=== PATIENT | female | born 1960 | race African-American/Black ===

== ENCOUNTER 2019-08-27 23:21 | Inpatient (IN) ==
[2019-08-28] MEDS ORDERED: INSULIN REGULAR DRIP 100 ML IV PRN (01:25)
[2019-08-28] MEDS ORDERED: GLUCAGON 1 MG VIAL IM PRN ×2 (01:26→08:58)
[2019-08-28] MEDS ORDERED: DEXTROSE 10% 250 ML BAG IV PRN (01:38)
[2019-08-28] MEDS ORDERED: DEXTROSE 50% 25 GM/50 ML VIAL IV PRN ×2 (01:44→08:58)
[2019-08-28 02:08] LABS: Basophils # 0.1 10*3/uL (0.0-0.2); Basophils % 0.3 % (0.0-0.8); Eosinophils # 0.1 10*3/uL (0.0-0.87); Eosinophils % 0.6 % (0.00-10.9); Hematocrit 43.8 VOL% (35.7-47.0); Hemoglobin 14.5 GM/DL (12.0-16.0); Immature Granulocytes % 0.7 %; Immature Granulocytes Absolute 0.11 #; Lymphocytes # 1.7 10*3/uL (1.4-4.0); Mean Corpuscular HGB Conc 33.1 GM/DL (32-36); Mean Corpuscular Volume 86.4 FL (87-102); Mean Platelet Volume 10.8 FL (9.6-12.0); Monocytes % 5.6 % (1.7-12.7); Neutrophils % 82.8 % (38.7-73.9); Platelet Count 344 T/CUMM (130-400); Red Blood Count 5.07 MC/CUMM (3.8-5.5); Red Cell Distribution Width 12.9 % (9.3-17.3); White Blood Count 16.7 T/CUMM (4-12)
[2019-08-28 02:38] LABS: Calcium 10.2 MG/DL (8.5-10.1); Osmolality,Calculated 279.4 MOS/KG (273-304)
[2019-08-28 03:15] LABS: ABG HCO3 27.1 MMOL/L (20-26); ABG Oxygen Saturation 99.2 % (95-100); ABG PCO2 48.8 MM HG (35-48); ABG PH 7.384 (7.35-7.45); Allen Test Positive
[2019-08-28] MEDS ORDERED: ONDANSETRON 4 MG/2 ML VIAL IV PRN (05:05)
[2019-08-28 05:45] LABS: Calcium 9.9 MG/DL (8.5-10.1); Osmolality,Calculated 277.9 MOS/KG (273-304)
[2019-08-28] MEDS ORDERED: hydrALAZINE 20 MG/1 ML VIAL IV PRN (07:09)
[2019-08-28] MEDS: carvediloL 12.5 MG TABLET PO SCH ×2 (08:33→21:35)
[2019-08-28] MEDS ORDERED: FUROSEMIDE 40 MG/4 ML VIAL IV SCH (09:00)
[2019-08-28] MEDS: FUROSEMIDE 40 MG/4 ML VIAL IV SCH ×2 (09:23→21:25)
[2019-08-28] MEDS ORDERED: INSULIN LISPRO 100 UNIT/ML SUBCUT SCH (10:00)
[2019-08-28] MEDS ORDERED: ALBUTEROL/IPRATROPIUM 3 ML NEB RESP TX ONE (11:04)
[2019-08-28] MEDS: NYSTATIN CREAM 15 GM TUBE TOP SCH ×2 (11:59→22:07)
[2019-08-28] MEDS: INSULIN LISPRO 100 UNIT/ML SUBCUT SCH ×3 (11:59→21:28)
[2019-08-28 12:59] LABS: Troponin I 0.065 NG/ML (0.00-0.045)
[2019-08-28] MEDS: ACETAMINOPHEN 325 MG TABLET PO PRN (14:28)
[2019-08-28 16:12] LABS: Troponin I 0.046 NG/ML (0.00-0.045)
[2019-08-28 19:21] LABS: Troponin I 0.061 NG/ML (0.00-0.045)
[2019-08-29] MEDS: INSULIN LISPRO 100 UNIT/ML SUBCUT SCH ×6 (00:59→21:30)
[2019-08-29 06:47] LABS: Basophils # 0.1 10*3/uL (0.0-0.2); Basophils % 0.3 % (0.0-0.8); Eosinophils # 0.1 10*3/uL (0.0-0.87); Eosinophils % 0.8 % (0.00-10.9); Hematocrit 45.2 VOL% (35.7-47.0); Hemoglobin 14.4 GM/DL (12.0-16.0); Immature Granulocytes % 0.7 %; Immature Granulocytes Absolute 0.11 #; Lymphocytes # 2.3 10*3/uL (1.4-4.0); Lymphocytes % 15.1 % (21.3-54.2); Mean Corpuscular HGB Conc 31.9 GM/DL (32-36); Mean Corpuscular Volume 89.2 FL (87-102); Mean Platelet Volume 10.8 FL (9.6-12.0); Monocytes % 6.6 % (1.7-12.7); Neutrophils % 76.5 % (38.7-73.9); Platelet Count 334 T/CUMM (130-400); Red Blood Count 5.07 MC/CUMM (3.8-5.5); White Blood Count 15.5 T/CUMM (4-12)
[2019-08-29 07:14] LABS: Albumin 3.3 G/DL (3.4-5.0); Calcium 9.5 MG/DL (8.5-10.1); Osmolality,Calculated 273.4 MOS/KG (273-304); Total Protein 8.4 G/DL (6.4-8.3)
[2019-08-29] MEDS: FUROSEMIDE 40 MG/4 ML VIAL IV SCH (09:51)
[2019-08-29] MEDS: carvediloL 12.5 MG TABLET PO SCH ×2 (09:52→21:30)
[2019-08-29] MEDS: NYSTATIN CREAM 15 GM TUBE TOP SCH ×2 (12:31→21:30)
[2019-08-30 05:35] LABS: Apearance,Urine Slightly Hazy (Clear); Bacteria,Urine Many /HPF (Few); Bilirubin,Urine Negative (Negative); Blood, Urine Moderate mg/dL (Negative); Glucose,Urine (UA) >=500 mg/dL (Negative); Granular Casts,Urine 1 /LPF (0-1); Hyaline Casts,Urine 122 /LPF (0-3); Ketones,Urine Negative (Negative); Mucus,Urine Occasional /LPF (Occasional); Nitrite,Urine Negative (Negative); Protein,Urine Negative; RBC,Urine 13 /HPF (0-4); Squamous Epithelial Cell,Urine Occasional /HPF (0-10); Urine Color Amber (Yellow); Urine Specific Gravity 1.014 (1.001-1.035); Urine Urobilinogen < 2.0 EU/DL (0.2-1.0); WBC,Urine 7 /HPF (0-6)
[2019-08-30] MEDS: INSULIN LISPRO 100 UNIT/ML SUBCUT SCH ×7 (05:47→23:44)
[2019-08-30 06:04] LABS: Basophils # 0.1 10*3/uL (0.0-0.2); Basophils % 0.4 % (0.0-0.8); Eosinophils # 0.2 10*3/uL (0.0-0.87); Eosinophils % 1.3 % (0.00-10.9); Hematocrit 43.3 VOL% (35.7-47.0); Immature Granulocytes % 0.6 %; Immature Granulocytes Absolute 0.08 #; Lymphocytes # 2.2 10*3/uL (1.4-4.0); Lymphocytes % 16.4 % (21.3-54.2); Mean Corpuscular HGB Conc 32.3 GM/DL (32-36); Mean Corpuscular Volume 87.8 FL (87-102); Neutrophils % 74.3 % (38.7-73.9); Platelet Count 301 T/CUMM (130-400); Red Blood Count 4.93 MC/CUMM (3.8-5.5); Red Cell Distribution Width 12.9 % (9.3-17.3); White Blood Count 13.5 T/CUMM (4-12)
[2019-08-30 06:53] LABS: Calcium 9.4 MG/DL (8.5-10.1); Osmolality,Calculated 272.2 MOS/KG (273-304)
[2019-08-30 06:54] LABS: Albumin 3.6 G/DL (3.4-5.0); Calcium 9.1 MG/DL (8.5-10.1); Osmolality,Calculated 274.1 MOS/KG (273-304)
[2019-08-30] MEDS: carvediloL 12.5 MG TABLET PO SCH ×2 (09:14→20:40)
[2019-08-30] MEDS: NYSTATIN CREAM 15 GM TUBE TOP SCH ×2 (09:17→20:40)
[2019-08-30] MEDS: glipiZIDE 5 MG TABLET PO SCH (12:04)
[2019-08-30] MEDS: ACETAMINOPHEN 325 MG TABLET PO PRN (20:38)
[2019-08-31] MEDS: INSULIN LISPRO 100 UNIT/ML SUBCUT SCH ×5 (04:19→21:50)
[2019-08-31] MEDS: glipiZIDE 5 MG TABLET PO SCH (08:51)
[2019-08-31] MEDS: carvediloL 12.5 MG TABLET PO SCH ×2 (08:52→21:51)
[2019-08-31] MEDS: NYSTATIN CREAM 15 GM TUBE TOP SCH ×2 (08:52→21:51)
[2019-08-31 10:19] LABS: Calcium 9.1 MG/DL (8.5-10.1); Osmolality,Calculated 274.2 MOS/KG (273-304)
[2019-08-31] MEDS: metFORMIN 500 MG TABLET PO SCH (16:54)
[2019-09-01] MEDS: INSULIN LISPRO 100 UNIT/ML SUBCUT SCH ×6 (00:20→20:24)
[2019-09-01 06:15] LABS: Basophils # 0.1 10*3/uL (0.0-0.2); Basophils % 0.4 % (0.0-0.8); Eosinophils # 0.2 10*3/uL (0.0-0.87); Eosinophils % 1.5 % (0.00-10.9); Hematocrit 43.2 VOL% (35.7-47.0); Hemoglobin 13.9 GM/DL (12.0-16.0); Immature Granulocytes % 0.6 %; Immature Granulocytes Absolute 0.08 #; Lymphocytes # 2.4 10*3/uL (1.4-4.0); Lymphocytes % 16.4 % (21.3-54.2); Mean Corpuscular HGB Conc 32.2 GM/DL (32-36); Mean Corpuscular Volume 88.9 FL (87-102); Mean Platelet Volume 10.9 FL (9.6-12.0); Monocytes % 6.3 % (1.7-12.7); Neutrophils % 74.8 % (38.7-73.9); Platelet Count 323 T/CUMM (130-400); Red Blood Count 4.86 MC/CUMM (3.8-5.5); Red Cell Distribution Width 12.8 % (9.3-17.3); White Blood Count 14.3 T/CUMM (4-12)
[2019-09-01 06:40] LABS: Osmolality,Calculated 266.2 MOS/KG (273-304)
[2019-09-01] MEDS ORDERED: TOLVAPTAN 15 MG TABLET PO SCH (09:00)
[2019-09-01] MEDS: metFORMIN 500 MG TABLET PO SCH ×2 (09:09→16:19)
[2019-09-01] MEDS: carvediloL 12.5 MG TABLET PO SCH ×2 (09:10→20:24)
[2019-09-01] MEDS: NYSTATIN CREAM 15 GM TUBE TOP SCH ×2 (09:13→20:26)
[2019-09-01] MEDS: ACETAMINOPHEN 325 MG TABLET PO PRN (12:54)
[2019-09-01] MEDS ORDERED: POTASSIUM CHLORIDE 20 MEQ TABLET PO ONE (15:49)
[2019-09-01] MEDS ORDERED: cefTRIAXone 1,000 MG in SYRINGE 1 EACH IV SCH (16:00)
[2019-09-02] MEDS: INSULIN LISPRO 100 UNIT/ML SUBCUT SCH ×3 (00:05→09:01)
[2019-09-02 06:47] LABS: Calcium 8.7 MG/DL (8.5-10.1); Osmolality,Calculated 275.2 MOS/KG (273-304)
[2019-09-02] MEDS: metFORMIN 500 MG TABLET PO SCH (09:01)
[2019-09-02] MEDS: carvediloL 12.5 MG TABLET PO SCH (09:01)
[2019-09-02 09:16] VITALS: BP 185/87
== END 2019-09-02 13:10 | disposition home health service (06) | DRG 638 ==
LOC: N.ICU 08-28 01:19 → SUATTDRO 08-28 01:19 → N.TELES 08-28 14:08
PROVIDERS: ADMIT Internal Medicine; ATTEND Internal Medicine